=== PATIENT | female | born 1965 | race Caucasian/White ===

== ENCOUNTER 2020-04-18 23:35 | Emergency (ER) | payer MEDICARE, MEDICAID ==
[~2020-04-18] VITALS: Ht 160 cm; Wt 78.0 kg
[~2020-04-18 23:35] MED LIST: ACET325T26 PO; BENZ1TAB61 PO; BENZ2AMP4 PO; FLUO20CA23 PO; GENT3.5O3 OP; IBUP-1221 PO; LEVO75TA5 PO; METF10002 PO; MULT1TAB98 PO; OMEP-110 PO; ZIPR40CA3 PO; ZIPR60CA3 PO; [UNRECOGNIZED DRUG - CODE] PO
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
[2020-04-19 00:12] LABS: BASOPHILS # (AUTO) 0.04 x10^3/uL (0-0.1); BASOPHILS % (AUTO) 1 % (0-1); EOSINOPHILS # (AUTO) 0.27 x10^3/uL (0-0.4); EOSINOPHILS % (AUTO) 4 % (1-7); LYMPHOCYTES % (AUTO) 30 % (22-44); MD NO; MEAN CORPUSCULAR HGB CONC 32.7 g/dL (32.4-35.8); MEAN PLATELET VOLUME 10.5 fL (7.4-10.4); MONOCYTES # (AUTO) 0.56 x10^3/uL (0.2-0.8); MONOCYTES % (AUTO) 8 % (2-9); NEUTROPHILS % (AUTO) 57 % (42-75); PLATELET COUNT 227 x10^3/uL (130-400); RED BLOOD COUNT 2.97 x10^6/uL (3.82-5.3); RED CELL DISTRIBUTION WIDTH 16.2 % (9.6-15.2)
[2020-04-19 00:24] LABS: ALBUMIN 2.6 g/dL (3.4-5.0); ANION GAP 5 mmol/L (5-15); CALCIUM 7.7 mg/dL (8.5-10.1); CHLORIDE 114 mmol/L (98-107)
[2020-04-19 00:25] LABS: CREATININE 1.27 mg/dL (0.55-1.02)
[2020-04-19 00:28] LABS: SALICYLATE LEVEL < 1.7 mg/dL (2.8-20.0)
--- NOTE | 2020-04-19 01:50 | NUR ---
PT STILL UNABLE TO PROVIDE UA. PT GIVEN WATER AND THEN WENT BACK TO SLEEP. EVEN RISE AND FALL OF CHEST OBSERVED
--- NOTE | 2020-04-19 02:42 | NUR ---
PT RESTING. EVEN RISE AND FALL OF CHEST OBSERVED. SITTER IN VIEW OF PT.
--- NOTE | 2020-04-19 04:11 | NUR ---
PT NEXT TO BE EVALUATED BY TELEPSYCH. PT SLEEPING IN NAD. SITTER IN VIEW OF PT
--- NOTE | 2020-04-19 04:28 | NUR ---
pt evaluated by telepsych. waiting for report. Pt yelling that she wants something to drink. Pt given water.
[2020-04-19] MEDS ORDERED: ACETAMINOPHEN 325 MG TABLET ONE ×2 (04:31→06:21)
[2020-04-19] MEDS: ACETAMINOPHEN 325 MG TABLET PO ONE ×2 (04:33→06:25)
--- NOTE | 2020-04-19 04:37 | NUR ---
PT REFUSED TYLENOL SAYING "I DONT HAVE A LIVER" UPDATED NO NEW MEDICATION ORDERS RECIEVED AT THIS TIME
--- NOTE | 2020-04-19 04:44 | NUR ---
PT YELLING FOR PAIN MEDICATION. PT ADVISED THAT SHE CAN HAVE MEDS ONCE UA IS GIVEN. PT UP TO BATHROOM. WILL COLLECT SAMPLE AFTER PT PROVIDES.
--- NOTE | 2020-04-19 06:14 | NUR ---
PT GIVEN BELONGINGS BACK. MESSAGE LEFT FOR ALIYAH SAHA PROGRAM PROJECT MANAGER [phone].
--- NOTE | 2020-04-19 06:26 | NUR ---
PT NOW REQUESTING TYLENOL. PT MEDICATED AND ASKED TO PLEASE GET DRESSED SO THAT WE CAN GET HER BACK TO HER SKILLED NURSING.
--- NOTE | 2020-04-19 06:35 | NUR ---
retail warehouse associate called again and message left. RN attempting to contact house to facilitate safe discharge
--- NOTE | 2020-04-19 06:56 | NUR ---
TOOK REPORT FROM ROCKY SANDHU RN, ASSUME CARE.
--- NOTE | 2020-04-19 07:06 | NUR ---
student accounts manager called (Melinda Myers) mail box if full, could not leave message. RN attempting to contact house to facilitate safe discharge. ED diet tray ordered.
--- NOTE | 2020-04-19 07:15 | NUR ---
PT CALM SLEEPING, RR EVEN AND UNLABORED.
--- NOTE | 2020-04-19 07:27 | NUR ---
CALLED PT HOME PHONE AT [phone] AND LEFT A MESSAGE. CALLED PT'S FATHER AT [phone] (SHAWN HOLCOMB) AND LEFT A MESSAGE AND CALLED hOUSE MANAGE AGAIN (ALIYAH SAHA) [phone], MAIL BOX IS FULL.
--- NOTE | 2020-04-19 09:01 | NUR ---
SHAWN HOLCOMB FATHER CALLED. SHAWN STARTED YELLING ASKING HOW WE GOT HIS NUMBER, HE WAS CHICHI THAT HE IS ON THE PERSON TO CONTACT AND NEXT OF KIN TO CONTACT. SHAWN REPORTS THAT SHE IS A [place] OF THE STATE AND HE DOSE NOT HAVE CONTACT INFORMATION FOR HER HOUSE AND COULD NOT HELP. SHAWN REPORTS THAT SHE IS NOT HIS PROBLEM AND HUNG UP THE PHONE.
--- NOTE | 2020-04-19 10:11 | NUR ---
CALLED PT HOME PHONE AT [phone] AND LEFT A MESSAGE. CALLED SEATTLE MANAGE AGAIN (ALIYAH SAHA) [phone], MAIL BOX IS FULL.
--- NOTE | 2020-04-19 10:25 | NUR ---
YRIS TORRES CALLED TO MAKE A WELL CHECK ON HER HOUSE TO MAKE A SAFE DISCHARGE. YRIS TORRES HAD A NUMBER ON FILE TO CALL ([phone]). CALLED AND TALKED TO [facility] STAFF TO COME PICK HER UP IN 20 MIN.
[2020-04-19 10:34] VITALS: BP 124/74
== END 2020-04-19 10:56 | disposition home or self-care (01) ==
LOC: ED 04-19 02:20
DX: F22 Delusional disorders (principal); R06.00 Dyspnea, unspecified; I10 Essential (primary) hypertension; E11.9 Type 2 diabetes mellitus without complications; K21.9 Gastro-esophageal reflux disease without esophagitis; F25.9 Schizoaffective disorder, unspecified; Z90.49 Acquired absence of other specified parts of digestive tract; Z86.39 Personal history of other endocrine, nutritional and metabolic disease
CPT/HCPCS: 36415; 80048; 80307; 82040; 85025; 99283

== ENCOUNTER 2020-06-02 13:34 | Inpatient (IN) | payer MEDICARE, MEDICAID ==
[~2020-06-02] VITALS: Ht 162.6 cm; Wt 69.1 kg
[2020-06-02] MEDS ORDERED: SODIUM CHLORIDE 0.9% 1,000 ML IV ONE (13:45)
[2020-06-02] MEDS ORDERED: SODIUM CHLORIDE FLUSH 10ML SYR IVF ONE (14:00)
[2020-06-02 14:06] LABS: BASOPHILS # (AUTO) 0.04 x10^3/uL (0-0.1); BASOPHILS % (AUTO) 1 % (0-1); EOSINOPHILS # (AUTO) 0.06 x10^3/uL (0-0.4); EOSINOPHILS % (AUTO) 1 % (1-7); LYMPHOCYTES # (AUTO) 0.91 x10^3/uL (1-3.4); LYMPHOCYTES % (AUTO) 10 % (22-44); MD NO; MEAN CORPUSCULAR HEMOGLOBIN 29.6 pg (27.0-34.8); MEAN PLATELET VOLUME 10.9 fL (7.4-10.4); MONOCYTES # (AUTO) 0.68 x10^3/uL (0.2-0.8); MONOCYTES % (AUTO) 7 % (2-9); NEUTROPHILS # (AUTO) 7.84 x10^3/uL (1.8-6.8); NEUTROPHILS % (AUTO) 82 % (42-75); PLATELET COUNT 206 x10^3/uL (130-400); RED BLOOD COUNT 3.79 x10^6/uL (3.82-5.3); RED CELL DISTRIBUTION WIDTH 15.6 % (9.6-15.2)
[2020-06-02 14:18] LABS: ALANINE AMINOTRANSFERASE 58 U/L (12-78); ALBUMIN 2.1 g/dL (3.4-5.0); ANION GAP 9 mmol/L (5-15); CALCIUM 8.2 mg/dL (8.5-10.1); CHLORIDE 112 mmol/L (98-107); CREATININE 2.18 mg/dL (0.55-1.02)
[2020-06-02 14:29] LABS: ALKALINE PHOSPHATASE 180 U/L (45-117); BILIRUBIN,TOTAL 0.6 mg/dL (0.2-1.0); TOTAL PROTEIN 7.1 g/dL (6.4-8.2)
[2020-06-02 14:53] LABS: ACETONE, SERUM Trace (Negative)
[2020-06-02] MEDS ORDERED: MAGNESIUM SULFATE PMX 2GM/50ML 50 ML IV ONE (15:30)
[2020-06-02] MEDS ORDERED: POTASSIUM CHLORIDE 40 MEQ in SODIUM CHLORIDE 0.9% 500 ML IV ONE (15:30)
[2020-06-02] MEDS ORDERED: MAGNESIUM SULFATE PMX 2GM/50ML 50 ML ONE (15:49)
--- NOTE | 2020-06-02 15:52 | NUR ---
Pt resting, no change from baseline on arrival. No complaints at this time. VS updated. Fluids infusing.
--- NOTE | 2020-06-02 16:00 | NUR ---
Mag/pottasium compatability verified by pharmacy
--- NOTE | 2020-06-02 16:00 | NUR ---
Pt does not know her daily medications, poor historian.
[2020-06-02 16:18] LABS: INTERNATIONAL NORMALIZED RATIO > 12.00 (0.93-1.1); PROTHROMBIN TIME > 148.7 Seconds (9.6-11.5)
[2020-06-02] MEDS ORDERED: SODIUM CHLORIDE 0.9%, 500ML IVBOLUS ONE (16:30)
[2020-06-02 17:14] VITALS: BP 96/61
[2020-06-02] MEDS ORDERED: GLUCAGON 1 MG IM PRN (18:30)
[2020-06-02] MEDS ORDERED: DEXTROSE 4 GM TAB.CHEW PO PRN (18:30)
[2020-06-02] MEDS ORDERED: DEXTROSE 50%, 50ML SYRINGE IVPush PRN (18:30)
[2020-06-02] MEDS ORDERED: ONDANSETRON 2MG/ML, 2ML IVPush PRN (18:30)
[2020-06-02 19:37] LABS: INTERNATIONAL NORMALIZED RATIO > 12.00 (0.93-1.1)
[2020-06-02 19:44] LABS: SALICYLATE LEVEL < 1.7 mg/dL (2.8-20.0)
[2020-06-02] MEDS ORDERED: PHYTONADIONE 10 MG in SODIUM CHLORIDE 0.9% 50 ML IV ONE (20:30)
[2020-06-02 20:36] VITALS: BP 98/66
[2020-06-02 20:50] VITALS: BP 98/66
[2020-06-02] MEDS: INSULIN LISPRO 100 UNITS/ML, PEN SQ-INSULIN SCH (21:00)
[2020-06-02 21:38] LABS: INTERNATIONAL NORMALIZED RATIO > 12.00 (0.93-1.1); PROTHROMBIN TIME 139.8 Seconds (9.6-11.5)
[2020-06-02] MEDS: BENZTROPINE 1 MG TABLET PO SCH (21:47)
[2020-06-02] MEDS: SODIUM CHLORIDE FLUSH 10ML SYR IVF SCH (21:47)
[2020-06-02] MEDS ORDERED: ACETAMINOPHEN 325 MG TABLET ONE (22:01)
[2020-06-02] MEDS: ACETAMINOPHEN 325 MG TABLET PO PRN (22:11)
[2020-06-03 01:00] VITALS: BP 107/69
[2020-06-03 01:30] LABS: CLOSTRIDIUM DIFFICILE ANTIGEN NEGATIVE; CLOSTRIDIUM DIFFICILE TOXIN NEGATIVE (Negative)
[2020-06-03] MEDS: SODIUM CHLORIDE 0.9% 1,000 ML IV SCH ×3 (03:14→15:02)
[2020-06-03 04:17] LABS: ALANINE AMINOTRANSFERASE 47 U/L (12-78); ALBUMIN 1.7 g/dL (3.4-5.0); ANION GAP 9 mmol/L (5-15); CALCIUM 7.5 mg/dL (8.5-10.1); CHLORIDE 115 mmol/L (98-107); CREATININE 1.93 mg/dL (0.55-1.02)
[2020-06-03 04:19] LABS: ALKALINE PHOSPHATASE 139 U/L (45-117); BILIRUBIN,TOTAL 0.8 mg/dL (0.2-1.0); TOTAL PROTEIN 5.9 g/dL (6.4-8.2)
[2020-06-03 04:20] LABS: INTERNATIONAL NORMALIZED RATIO 2.14 (0.93-1.1); PROTHROMBIN TIME 22.2 Seconds (9.6-11.5)
[2020-06-03 04:31] LABS: BASOPHILS # (AUTO) 0.02 x10^3/uL (0-0.1); BASOPHILS % (AUTO) 0 % (0-1); EOSINOPHILS % (AUTO) 0 % (1-7); LYMPHOCYTES # (AUTO) 1.21 x10^3/uL (1-3.4); LYMPHOCYTES % (AUTO) 14 % (22-44); MD NO; MEAN CORPUSCULAR HEMOGLOBIN 29.4 pg (27.0-34.8); MEAN CORPUSCULAR HGB CONC 32.5 g/dL (32.4-35.8); MEAN PLATELET VOLUME 11.5 fL (7.4-10.4); MONOCYTES # (AUTO) 0.43 x10^3/uL (0.2-0.8); MONOCYTES % (AUTO) 5 % (2-9); NEUTROPHILS % (AUTO) 81 % (42-75); PLATELET COUNT 173 x10^3/uL (130-400); RED BLOOD COUNT 3.19 x10^6/uL (3.82-5.3); RED CELL DISTRIBUTION WIDTH 15.2 % (9.6-15.2)
[2020-06-03] MEDS: LEVOTHYROXINE 75 MCG TABLET PO SCH (06:03)
[2020-06-03 06:41] LABS: MICROSCOPIC NOT IND
[2020-06-03 06:55] LABS: AMPHETAMINE SCREEN, URINE Negative (Negative); BARBITURATE SCREEN, URINE Negative (Negative); BENZODIAZEPINE SCREEN, URINE Negative (Negative); CANNABINOID SCREEN, URINE Negative (Negative); COCAINE SCREEN, URINE Negative (Negative); METHADONE SCREEN, URINE Negative (Negative); OPIATE SCREEN, URINE Negative (Negative)
[2020-06-03] MEDS: INSULIN LISPRO 100 UNITS/ML, PEN SQ-INSULIN SCH ×4 (07:00→20:11)
[2020-06-03 07:01] VITALS: BP 97/66
[2020-06-03] MEDS ORDERED: MAGNESIUM SULFATE PMX 2GM/50ML 50 ML IV ONE (08:00)
[2020-06-03] MEDS ORDERED: POTASSIUM CHLORIDE 20 MEQ TAB.ER.PRT PO ONE (08:00)
[2020-06-03] MEDS ORDERED: ZIPRASIDONE 20MG CAPSULE ONE (08:24)
[2020-06-03] MEDS: BENZTROPINE 1 MG TABLET PO SCH ×2 (08:30→20:03)
[2020-06-03] MEDS: OMEPRAZOLE 20 MG CAPSULE.DR PO SCH (08:30)
[2020-06-03] MEDS: ZIPRASIDONE 40MG CAPSULE PO SCH (08:31)
[2020-06-03] MEDS: FLUOXETINE HCL 20 MG CAPSULE PO SCH (08:31)
[2020-06-03] MEDS: SODIUM CHLORIDE FLUSH 10ML SYR IVF SCH ×2 (08:38→20:04)
[2020-06-03] MEDS: ACETAMINOPHEN 325 MG TABLET PO PRN (10:42)
[2020-06-03 11:38] LABS: INTERNATIONAL NORMALIZED RATIO 1.63 (0.93-1.1); PROTHROMBIN TIME 16.9 Seconds (9.6-11.5)
[2020-06-03 12:29] VITALS: BP 98/72
[2020-06-03 18:27] VITALS: BP 99/66
[2020-06-04] MEDS: SODIUM CHLORIDE 0.9% 1,000 ML IV SCH (00:02)
[2020-06-04] MEDS: ACETAMINOPHEN 325 MG TABLET PO PRN ×4 (00:09→21:13)
[2020-06-04 00:10] VITALS: BP 110/75
[2020-06-04 04:05] LABS: ALANINE AMINOTRANSFERASE 36 U/L (12-78); ALBUMIN 1.6 g/dL (3.4-5.0); ANION GAP 8 mmol/L (5-15); CALCIUM 7.9 mg/dL (8.5-10.1); CHLORIDE 119 mmol/L (98-107); CREATININE 1.63 mg/dL (0.55-1.02)
[2020-06-04 04:07] LABS: INTERNATIONAL NORMALIZED RATIO 1.54 (0.93-1.1); PROTHROMBIN TIME 15.9 Seconds (9.6-11.5)
[2020-06-04 04:19] LABS: BASOPHILS # (AUTO) 0.01 x10^3/uL (0-0.1); BASOPHILS % (AUTO) 0 % (0-1); EOSINOPHILS % (AUTO) 1 % (1-7); LYMPHOCYTES # (AUTO) 1.34 x10^3/uL (1-3.4); LYMPHOCYTES % (AUTO) 19 % (22-44); MD NO; MEAN CORPUSCULAR HEMOGLOBIN 29.4 pg (27.0-34.8); MEAN CORPUSCULAR HGB CONC 32.6 g/dL (32.4-35.8); MEAN PLATELET VOLUME 11.3 fL (7.4-10.4); MONOCYTES % (AUTO) 8 % (2-9); NEUTROPHILS # (AUTO) 5.19 x10^3/uL (1.8-6.8); NEUTROPHILS % (AUTO) 72 % (42-75); PLATELET COUNT 182 x10^3/uL (130-400); RED BLOOD COUNT 3.02 x10^6/uL (3.82-5.3); RED CELL DISTRIBUTION WIDTH 15.6 % (9.6-15.2)
[2020-06-04 04:31] LABS: ALKALINE PHOSPHATASE 126 U/L (45-117); BILIRUBIN,TOTAL 0.8 mg/dL (0.2-1.0); TOTAL PROTEIN 5.3 g/dL (6.4-8.2)
[2020-06-04] MEDS: LEVOTHYROXINE 75 MCG TABLET PO SCH (05:08)
[2020-06-04 06:20] VITALS: BP 98/66
[2020-06-04] MEDS: INSULIN LISPRO 100 UNITS/ML, PEN SQ-INSULIN SCH ×4 (07:00→21:13)
[2020-06-04] MEDS ORDERED: SODIUM BICARBONATE 8.4% 150 MEQ in SODIUM CHLORIDE 0.45% 1,000 ML IV SCH (07:30)
[2020-06-04] MEDS ORDERED: POTASSIUM CHLORIDE 20 MEQ TAB.ER.PRT PO ONE (08:00)
[2020-06-04] MEDS: ZIPRASIDONE 40MG CAPSULE PO SCH (08:18)
[2020-06-04] MEDS: BENZTROPINE 1 MG TABLET PO SCH ×2 (08:19→21:13)
[2020-06-04] MEDS: OMEPRAZOLE 20 MG CAPSULE.DR PO SCH (08:20)
[2020-06-04] MEDS: FLUOXETINE HCL 20 MG CAPSULE PO SCH (08:20)
[2020-06-04] MEDS: SODIUM CHLORIDE FLUSH 10ML SYR IVF SCH ×2 (08:21→21:13)
[2020-06-04] MEDS: K-PHOS NEUTRAL 250MG TAB PO SCH ×4 (09:00→21:12)
[2020-06-04] MEDS: SODIUM BICARBONATE 8.4% 75 MEQ in DEXTROSE 5% 1,000 ML IV SCH ×2 (09:22→18:21)
[2020-06-04 11:27] LABS: INTERNATIONAL NORMALIZED RATIO 1.58 (0.93-1.1); PROTHROMBIN TIME 16.3 Seconds (9.6-11.5)
[2020-06-04 12:02] VITALS: BP 93/64
[2020-06-04 12:03] VITALS: BP 105/71
[2020-06-04 12:12] LABS: OCCULT BLOOD NEGATIVE (NEGATIVE)
[2020-06-04 18:26] VITALS: BP 98/50
[2020-06-05 02:20] VITALS: BP 95/53
[2020-06-05] MEDS: ACETAMINOPHEN 325 MG TABLET PO PRN ×3 (05:52→16:41)
[2020-06-05] MEDS: LEVOTHYROXINE 75 MCG TABLET PO SCH (05:52)
[2020-06-05] MEDS: OMEPRAZOLE 20 MG CAPSULE.DR PO SCH (05:52)
[2020-06-05 06:29] VITALS: BP 91/58
[2020-06-05 06:31] LABS: INTERNATIONAL NORMALIZED RATIO 1.35 (0.93-1.1); PROTHROMBIN TIME 13.9 Seconds (9.6-11.5)
[2020-06-05 06:32] LABS: BASOPHILS % (AUTO) 1 % (0-1); EOSINOPHILS % (AUTO) 1 % (1-7); LYMPHOCYTES % (AUTO) 21 % (22-44); MEAN CORPUSCULAR HEMOGLOBIN 29.5 pg (27.0-34.8); MEAN CORPUSCULAR HGB CONC 32.6 g/dL (32.4-35.8); MEAN PLATELET VOLUME 11.4 fL (7.4-10.4); MONOCYTES % (AUTO) 7 % (2-9); NEUTROPHILS % (AUTO) 71 % (42-75); PLATELET COUNT 178 x10^3/uL (130-400); RED BLOOD COUNT 3.26 x10^6/uL (3.82-5.3); RED CELL DISTRIBUTION WIDTH 15.3 % (9.6-15.2)
[2020-06-05 06:35] LABS: ALANINE AMINOTRANSFERASE 41 U/L (12-78); ALBUMIN 1.7 g/dL (3.4-5.0); ANION GAP 7 mmol/L (5-15); CALCIUM 8.1 mg/dL (8.5-10.1); CHLORIDE 111 mmol/L (98-107)
[2020-06-05 06:41] LABS: ALKALINE PHOSPHATASE 143 U/L (45-117); BILIRUBIN,TOTAL 1.2 mg/dL (0.2-1.0); CREATININE 1.53 mg/dL (0.55-1.02); TOTAL PROTEIN 5.8 g/dL (6.4-8.2)
[2020-06-05] MEDS: INSULIN LISPRO 100 UNITS/ML, PEN SQ-INSULIN SCH ×4 (07:00→21:00)
[2020-06-05 07:01] LABS: MD NO
[2020-06-05] MEDS ORDERED: MAGNESIUM SULFATE PMX 2GM/50ML 50 ML IV ONE (07:30)
[2020-06-05] MEDS ORDERED: POTASSIUM PHOSPHATE 44 MEQ in SODIUM CHLORIDE 0.9% 500 ML IV ONE (07:30)
[2020-06-05] MEDS: FLUOXETINE HCL 20 MG CAPSULE PO SCH (07:50)
[2020-06-05] MEDS: BENZTROPINE 1 MG TABLET PO SCH ×2 (07:50→20:55)
[2020-06-05] MEDS: ZIPRASIDONE 40MG CAPSULE PO SCH (07:50)
[2020-06-05] MEDS: SODIUM CHLORIDE FLUSH 10ML SYR IVF SCH ×2 (07:51→21:02)
[2020-06-05] MEDS: MULTIVITAMIN 1 TABLET PO SCH (11:34)
[2020-06-05 12:07] VITALS: BP_SYST 142; BP_SYST 95; BP_DIAS 62; BP_DIAS 95
[2020-06-05 18:19] VITALS: BP 97/65
[2020-06-06 01:37] VITALS: BP 94/62
[2020-06-06] MEDS: ACETAMINOPHEN 325 MG TABLET PO PRN ×3 (05:26→22:55)
[2020-06-06] MEDS: LEVOTHYROXINE 75 MCG TABLET PO SCH (05:26)
[2020-06-06 06:51] VITALS: BP 88/57
[2020-06-06] MEDS: INSULIN LISPRO 100 UNITS/ML, PEN SQ-INSULIN SCH ×4 (07:00→20:01)
[2020-06-06] MEDS: FLUOXETINE HCL 20 MG CAPSULE PO SCH (08:04)
[2020-06-06] MEDS: ZIPRASIDONE 40MG CAPSULE PO SCH (08:04)
[2020-06-06] MEDS: OMEPRAZOLE 20 MG CAPSULE.DR PO SCH (08:04)
[2020-06-06] MEDS: BENZTROPINE 1 MG TABLET PO SCH ×2 (08:04→20:06)
[2020-06-06] MEDS: MULTIVITAMIN 1 TABLET PO SCH (08:04)
[2020-06-06] MEDS: SODIUM CHLORIDE FLUSH 10ML SYR IVF SCH ×2 (08:05→20:05)
[2020-06-06] MEDS: SODIUM CHLORIDE 0.9% 1,000 ML IV SCH (08:27)
[2020-06-06 11:10] LABS: BASOPHILS % (AUTO) 1 % (0-1); EOSINOPHILS % (AUTO) 1 % (1-7); LYMPHOCYTES % (AUTO) 14 % (22-44); MEAN CORPUSCULAR HEMOGLOBIN 29.3 pg (27.0-34.8); MEAN CORPUSCULAR HGB CONC 32.3 g/dL (32.4-35.8); MEAN PLATELET VOLUME 11.1 fL (7.4-10.4); MONOCYTES % (AUTO) 5 % (2-9); NEUTROPHILS % (AUTO) 80 % (42-75); PLATELET COUNT 215 x10^3/uL (130-400); RED BLOOD COUNT 3.37 x10^6/uL (3.82-5.3); RED CELL DISTRIBUTION WIDTH 15.2 % (9.6-15.2)
[2020-06-06 11:12] LABS: ANION GAP 6 mmol/L (5-15); CALCIUM 7.9 mg/dL (8.5-10.1); CHLORIDE 117 mmol/L (98-107)
[2020-06-06 11:19] LABS: MD NO
[2020-06-06] MEDS: SODIUM BICARBONATE 650 MG TABLET PO SCH ×3 (12:16→21:00)
[2020-06-06 13:03] VITALS: BP 90/64
[2020-06-06 18:42] VITALS: BP 113/69
[2020-06-07 01:59] VITALS: BP 94/62
[2020-06-07] MEDS: INSULIN LISPRO 100 UNITS/ML, PEN SQ-INSULIN SCH ×4 (07:00→20:28)
[2020-06-07] MEDS: MULTIVITAMIN 1 TABLET PO SCH (08:50)
[2020-06-07] MEDS: ZIPRASIDONE 40MG CAPSULE PO SCH (08:50)
[2020-06-07] MEDS: SODIUM BICARBONATE 650 MG TABLET PO SCH ×2 (08:51→20:27)
[2020-06-07] MEDS: LEVOTHYROXINE 75 MCG TABLET PO SCH (08:51)
[2020-06-07] MEDS: OMEPRAZOLE 20 MG CAPSULE.DR PO SCH (08:51)
[2020-06-07] MEDS: FLUOXETINE HCL 20 MG CAPSULE PO SCH (08:51)
[2020-06-07] MEDS: BENZTROPINE 1 MG TABLET PO SCH ×2 (08:51→20:27)
[2020-06-07] MEDS: SODIUM CHLORIDE FLUSH 10ML SYR IVF SCH ×2 (08:52→20:29)
[2020-06-07 09:15] VITALS: BP 93/55
[2020-06-07 11:03] LABS: BASOPHILS % (AUTO) 1 % (0-1); EOSINOPHILS % (AUTO) 1 % (1-7); LYMPHOCYTES % (AUTO) 15 % (22-44); MEAN CORPUSCULAR HEMOGLOBIN 29.2 pg (27.0-34.8); MEAN CORPUSCULAR HGB CONC 31.9 g/dL (32.4-35.8); MEAN PLATELET VOLUME 10.7 fL (7.4-10.4); MONOCYTES % (AUTO) 6 % (2-9); NEUTROPHILS % (AUTO) 78 % (42-75); PLATELET COUNT 190 x10^3/uL (130-400); RED BLOOD COUNT 3.24 x10^6/uL (3.82-5.3); RED CELL DISTRIBUTION WIDTH 15.3 % (9.6-15.2)
[2020-06-07 11:04] LABS: MD NO
[2020-06-07 11:14] LABS: ANION GAP 8 mmol/L (5-15); CALCIUM 7.9 mg/dL (8.5-10.1); CHLORIDE 114 mmol/L (98-107); CREATININE 1.55 mg/dL (0.55-1.02)
[2020-06-07] MEDS: ACETAMINOPHEN 325 MG TABLET PO PRN ×2 (11:28→20:27)
[2020-06-07] MEDS: SODIUM CHLORIDE 0.9% 1,000 ML IV SCH ×2 (13:20)
[2020-06-07 16:30] VITALS: BP 92/60
[2020-06-07 18:54] VITALS: BP 100/66
[2020-06-08 01:44] VITALS: BP 91/62
[2020-06-08] MEDS: SODIUM CHLORIDE 0.9% 1,000 ML IV SCH ×2 (02:40→14:46)
[2020-06-08] MEDS: ACETAMINOPHEN 325 MG TABLET PO PRN ×2 (03:36→17:19)
[2020-06-08] MEDS: LEVOTHYROXINE 75 MCG TABLET PO SCH (06:25)
[2020-06-08 08:04] VITALS: BP 95/62
[2020-06-08] MEDS: INSULIN LISPRO 100 UNITS/ML, PEN SQ-INSULIN SCH (08:19)
[2020-06-08] MEDS: OMEPRAZOLE 20 MG CAPSULE.DR PO SCH (08:20)
[2020-06-08] MEDS: SODIUM BICARBONATE 650 MG TABLET PO SCH ×2 (08:20→19:33)
[2020-06-08] MEDS: FLUOXETINE HCL 20 MG CAPSULE PO SCH (08:20)
[2020-06-08] MEDS: BENZTROPINE 1 MG TABLET PO SCH ×2 (08:20→19:33)
[2020-06-08] MEDS: MULTIVITAMIN 1 TABLET PO SCH (08:20)
[2020-06-08] MEDS: SODIUM CHLORIDE FLUSH 10ML SYR IVF SCH ×2 (08:20→19:33)
[2020-06-08] MEDS: ZIPRASIDONE 40MG CAPSULE PO SCH (08:23)
[2020-06-08 12:11] VITALS: BP 117/78
[2020-06-08 19:50] VITALS: BP 120/82
[2020-06-09 01:20] VITALS: BP 109/67
[2020-06-09] MEDS: ACETAMINOPHEN 325 MG TABLET PO PRN ×4 (01:34→19:55)
[2020-06-09] MEDS: SODIUM CHLORIDE 0.9% 1,000 ML IV SCH (05:20)
[2020-06-09] MEDS: LEVOTHYROXINE 75 MCG TABLET PO SCH (05:46)
[2020-06-09 08:03] VITALS: BP 103/54
[2020-06-09] MEDS: SODIUM BICARBONATE 650 MG TABLET PO SCH ×2 (08:56→19:55)
[2020-06-09] MEDS: SODIUM CHLORIDE FLUSH 10ML SYR IVF SCH ×2 (08:57→19:56)
[2020-06-09] MEDS: OMEPRAZOLE 20 MG CAPSULE.DR PO SCH (08:57)
[2020-06-09] MEDS: FLUOXETINE HCL 20 MG CAPSULE PO SCH (08:57)
[2020-06-09] MEDS: BENZTROPINE 1 MG TABLET PO SCH ×2 (08:57→19:56)
[2020-06-09] MEDS: MULTIVITAMIN 1 TABLET PO SCH (08:57)
[2020-06-09] MEDS: ZIPRASIDONE 40MG CAPSULE PO SCH (08:57)
[2020-06-09 14:34] VITALS: BP 89/57
[2020-06-09 18:23] VITALS: BP_SYST 76; BP_SYST 80; BP_DIAS 49; BP_DIAS 50
[2020-06-09] MEDS ORDERED: PHARMACY INSTRUCTION MC PRN (19:30)
[2020-06-09] MEDS ORDERED: INSTRUCTION SEE COMMENTS XX PRN (19:30)
[2020-06-09] MEDS ORDERED: QUETIAPINE 25MG TABLET PO PRN (19:30)
[2020-06-09] MEDS: MELATONIN 3 MG TABLET PO SCH (19:56)
[2020-06-09] MEDS ORDERED: SODIUM CHLORIDE 0.9%, 500ML IVBOLUS ONE (22:30)
[2020-06-10] MEDS: LEVOTHYROXINE 75 MCG TABLET PO SCH (06:16)
[2020-06-10 06:46] VITALS: BP 94/61
[2020-06-10] MEDS: BENZTROPINE 1 MG TABLET PO SCH ×2 (08:26→19:57)
[2020-06-10] MEDS: ZIPRASIDONE 40MG CAPSULE PO SCH (08:26)
[2020-06-10] MEDS: OMEPRAZOLE 20 MG CAPSULE.DR PO SCH (08:26)
[2020-06-10] MEDS: FLUOXETINE HCL 20 MG CAPSULE PO SCH (08:26)
[2020-06-10] MEDS: MULTIVITAMIN 1 TABLET PO SCH (08:26)
[2020-06-10] MEDS: SODIUM CHLORIDE FLUSH 10ML SYR IVF SCH ×2 (08:27→19:58)
[2020-06-10 12:51] VITALS: BP 90/64
[2020-06-10] MEDS: ACETAMINOPHEN 325 MG TABLET PO PRN ×2 (16:09→22:36)
[2020-06-10 18:31] VITALS: BP 95/63
[2020-06-10] MEDS: MELATONIN 3 MG TABLET PO SCH (19:57)
[2020-06-11] MEDS: LEVOTHYROXINE 75 MCG TABLET PO SCH (06:02)
[2020-06-11] MEDS: OMEPRAZOLE 20 MG CAPSULE.DR PO SCH (06:02)
[2020-06-11 07:51] VITALS: BP 93/64
[2020-06-11] MEDS: BENZTROPINE 1 MG TABLET PO SCH ×2 (10:31→20:08)
[2020-06-11] MEDS: MULTIVITAMIN 1 TABLET PO SCH (10:31)
[2020-06-11] MEDS: FLUOXETINE HCL 20 MG CAPSULE PO SCH (10:31)
[2020-06-11] MEDS: SODIUM CHLORIDE FLUSH 10ML SYR IVF SCH ×2 (10:33→20:08)
[2020-06-11] MEDS: ZIPRASIDONE 40MG CAPSULE PO SCH (10:33)
[2020-06-11] MEDS: ACETAMINOPHEN 325 MG TABLET PO PRN (12:47)
[2020-06-11 13:38] VITALS: BP 90/62
[2020-06-11] MEDS: MELATONIN 3 MG TABLET PO SCH (20:08)
[2020-06-11 21:08] VITALS: BP 106/75
[2020-06-12] MEDS: LEVOTHYROXINE 75 MCG TABLET PO SCH (05:58)
[2020-06-12 07:15] VITALS: BP 96/63
[2020-06-12] MEDS: BENZTROPINE 1 MG TABLET PO SCH ×2 (08:30→20:15)
[2020-06-12] MEDS: FLUOXETINE HCL 20 MG CAPSULE PO SCH (08:31)
[2020-06-12] MEDS: MULTIVITAMIN 1 TABLET PO SCH (08:31)
[2020-06-12] MEDS: OMEPRAZOLE 20 MG CAPSULE.DR PO SCH (08:31)
[2020-06-12] MEDS: ZIPRASIDONE 40MG CAPSULE PO SCH (08:37)
[2020-06-12] MEDS: SODIUM CHLORIDE FLUSH 10ML SYR IVF SCH ×2 (08:38→20:08)
[2020-06-12] MEDS: ACETAMINOPHEN 325 MG TABLET PO PRN (11:58)
[2020-06-12 14:13] VITALS: BP 96/64
[2020-06-12] MEDS ORDERED: LOPERAMIDE 2 MG CAPSULE PO PRN (16:00)
[2020-06-12] MEDS: MELATONIN 3 MG TABLET PO SCH (20:15)
[2020-06-13 07:52] VITALS: BP 96/65
[2020-06-13] MEDS: SODIUM CHLORIDE FLUSH 10ML SYR IVF SCH (09:00)
[2020-06-13] MEDS: MULTIVITAMIN 1 TABLET PO SCH (09:29)
[2020-06-13] MEDS: BENZTROPINE 1 MG TABLET PO SCH (09:29)
[2020-06-13] MEDS: LEVOTHYROXINE 75 MCG TABLET PO SCH (09:29)
[2020-06-13] MEDS: OMEPRAZOLE 20 MG CAPSULE.DR PO SCH (09:29)
[2020-06-13] MEDS: FLUOXETINE HCL 20 MG CAPSULE PO SCH (09:30)
[2020-06-13] MEDS: ZIPRASIDONE 40MG CAPSULE PO SCH (09:38)
[2020-06-13 12:56] VITALS: BP 91/64
[2020-06-13] MEDS ORDERED: ZIPR40CA3 PO (17:30)
[2020-06-13] MEDS ORDERED: BENZ1TAB61 PO (17:30)
[2020-06-13] MEDS ORDERED: LEVO75TA5 PO (17:30)
[2020-06-13] MEDS ORDERED: FLUO20CA23 PO (17:30)
[2020-06-13] MEDS ORDERED: BENZTROPINE 1 MG TABLET PO SCH (21:00)
[2020-06-14] MEDS ORDERED: FLUOXETINE HCL 20 MG CAPSULE PO SCH (09:00)
== END 2020-06-13 18:55 | disposition home or self-care (01) | DRG 70 ==
LOC: ED 13:53 → EDIP 15:08 → 4WST 16:58 → 3N 06-09 12:00
PROVIDERS: ADMIT Emergency Medicine; ATTEND Hospitalist
DX: G93.41 Metabolic encephalopathy (principal); N17.0 Acute kidney failure with tubular necrosis; D68.9 Coagulation defect, unspecified; D68.4 Acquired coagulation factor deficiency; E87.2 Acidosis; K56.7 Ileus, unspecified; Z88.8 Allergy status to other drugs, medicaments and biological substances; D63.8 Anemia in other chronic diseases classified elsewhere; E03.9 Hypothyroidism, unspecified; E11.22 Type 2 diabetes mellitus with diabetic chronic kidney disease; E83.39 Other disorders of phosphorus metabolism; E83.42 Hypomagnesemia; E87.6 Hypokalemia; F25.0 Schizoaffective disorder, bipolar type; F41.9 Anxiety disorder, unspecified; I12.9 Hypertensive chronic kidney disease with stage 1 through stage 4 chronic kidney disease, or unspecified chronic kidney disease; K21.9 Gastro-esophageal reflux disease without esophagitis; K76.0 Fatty (change of) liver, not elsewhere classified; N18.30 Chronic kidney disease, stage 3 unspecified; R29.6 Repeated falls; Z66 Do not resuscitate; Z79.84 Long term (current) use of oral hypoglycemic drugs
CPT/HCPCS: 36415; 70450; 71045; 72125; 72128; 72131; 74018; 74176; 80048; 80053; 80307; 81003; 82010; 82140; 82272; 82533; 82607; 82728; 82962; 83036; 83540; 83550; 83735; 84100; 84439; 84443; 84466; 85025; 85610; 87324; 93005; 96374; 96375; G0378; J3430; J3480; J7070; 92523-GN; J3475; J7030; J7040